=== PATIENT | male | born 1970 | race Caucasian/White ===

== ENCOUNTER 2017-03-16 20:02 | Emergency (ER) | payer SELFPAY ==
--- NOTE | ~2017-03-16 | ER ---
PATIENT'S NAME: RICKIE PUENTE [facility] AGE: 47 Y [address] ROOM: [place] [address] LOCATION: [facility] ADMIT DATE: 03/16/2017 ER/Outpatient Report DISCHARGE DATE: 03/16/2017 FAMILY PHYSICIAN: PHYSICIAN, NO ATTENDING PHYSICIAN: Sameera Sloan The patient brought back to the ER 2015 hours, seen at 2015 hours, did attempt to get a UA upon arrival to the ER, but was unable to. CHIEF COMPLAINT: The patient was checked into the ER with suicidal thoughts. HISTORY OF PRESENT ILLNESS: The patient states he is here because of his family that they think he is suicidal, he states he is not. He has no desire to harm himself. He states he loves himself and would never harm himself. He has not eaten or slept according to the family for the last 4 days. He states he did eat this afternoon. His father reports that he has had problems with schizophrenia in the past. 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 He has not been hospitalized since for psychiatric problems. He was on lorazepam routinely up until July of 2016, he states he stopped taking that at that time because he no longer wanted to get along with his , he was only taking it, so he could get along with his . He states he is not currently on any medicine, is not supposed to be on any medicine. He refused to give a urine sample. States he does not want to be here. ALLERGIES: HE HAS NO KNOWN ALLERGIES. CURRENT MEDICATIONS: None. PAST MEDICAL HISTORY: Includes psychiatric psychosis hospitalization in 1995. PAST SURGERIES: Umbilical hernia repair in July of 2016 and surgery to the right arm as a child. SOCIAL HISTORY: He lives on his own. Does smoke herbal cigarettes as well as tobacco cigarettes. Denies use of drugs. Does drink alcohol on a regular basis. He states he has talked to the police several times over the last 4 days because he has been out picking up trash in a bathrobe and the police said that there PATIENT'S NAME: RICKIE PUENTE [facility] AGE: 47 Y [address] ROOM: [place] [address] LOCATION: [facility] ADMIT DATE: 03/16/2017 ER/Outpatient Report DISCHARGE DATE: 03/16/2017 FAMILY PHYSICIAN: PHYSICIAN, NO ATTENDING PHYSICIAN: Sameera Sloan Elvie was nothing wrong with that and let him go. His father is concerned that he is not able to care for himself. The patient refuses to have any treatments done, refuses to allow us to check any lab work, check any urine, so without being willing to be seen, he asked to sign out AMA, form was completed. He did sign out AMA and was escorted to the waiting room. The family is with him. They have chosen to call the Police Department to come and evaluate him and decide further care based on that. PERCY STEWART APRN FOR SAMEERA Bermeo DO JOAQUIN SLOAN/modl /[id number] d: 03/16/17 2329 t: 03/25/17 0512, OUTPATIENT REPORT
[2017-03-18] MEDS ORDERED: ATIVAN 1 MG1 MG PO (10:36)
[2017-06-05] MEDS ORDERED: INVEGA6 MG PO (10:43)
== END 2017-03-16 20:48 | disposition left against medical advice (07) ==
LOC: GMED 20:02
DX: Z53.21 Procedure and treatment not carried out due to patient leaving prior to being seen by health care provider (principal)

== ENCOUNTER 2017-03-16 21:19 | Emergency (ER) | payer SELFPAY ==
--- NOTE | ~2017-03-16 | ER ---
PATIENT'S NAME: RICKIE PUENTE [facility] AGE: 47 Y [address] ROOM: [place] [address] LOCATION: [facility] ADMIT DATE: 03/16/2017 ER/Outpatient Report DISCHARGE DATE: FAMILY PHYSICIAN: Physician, Unknown ATTENDING PHYSICIAN: Stevie Sloan Time of Arrival: 2122. Time of Evaluation: 2122. CHIEF COMPLAINT: The patient was here. Did not want to be seen. Left AMA. Family talked with him. They did call and talk with the police. Police came and talked with him. He agreed to be seen. Got him back to the room. Stated that he did not want to be seen. Went back to the conference room, talked with the family and police, and then agreed that he did need some assistance and would get assistance mentally on a voluntary basis. Patient continues to deny desire to harm self or others. ALLERGIES: HE HAS NO KNOWN ALLERGIES. MEDICATIONS: No regular medications. PAST MEDICAL HISTORY: Includes alcohol and drug abuse. 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 PAST SURGERIES: Include umbilical hernia repair, right forearm fracture. SOCIAL HISTORY: Does smoke tobacco as well as herbal cigarettes. Does smoke marijuana and drinks alcohol on a regular basis. REVIEW OF SYSTEMS: All negative other than those mentioned in the HPI. PHYSICAL EXAMINATION: VITAL SIGNS: Blood pressure is 126/90, pulse of 81, respirations 16, O2 saturation is 97% on room air. GENERAL: He is awake, alert, and oriented x4. SKIN: [place], warm, and dry. RESPIRATIONS: Even and nonlabored. Lung sounds are clear throughout. HEART: Regular rate and rhythm. ABDOMEN: Soft and nondistended. Bowel sounds are present. PATIENT'S NAME: RICKIE PUENTE [facility] AGE: 47 Y [address] ROOM: [place] [address] LOCATION: [facility] ADMIT DATE: 03/16/2017 ER/Outpatient Report DISCHARGE DATE: FAMILY PHYSICIAN: Physician, Unknown ATTENDING PHYSICIAN: Stevie Sloan He did urinate in a cup. LABORATORY AND DIAGNOSTIC STUDIES: EKG was completed. It shows sinus rhythm. CBC was done. White count 13.8. Chem panel is within normal limits. Alcohol was negative. Tylenol is negative. Salicylate level is 4.5. Urine drug screen is positive for marijuana. EMERGENCY ROOM COURSE: [facility] was contacted. They report since the patient is not suicidal at this time he does not qualify for inpatient care. They recommend that patient be considered for crisis unit in [place]. They will be contacted. [place] police department has evaluated patient and do not feel he is a potential harm to self or others and will not place him in emergency protective custody. Patient reviewed with Dr. Sloan. Please see his dictation for placement of patient. PERCY STEWART APRN FOR DO JOAQUIN LEWIS/justin /[id number] d: 03/17/17 0130 t: 03/25/17 0512, OUTPATIENT REPORT
--- NOTE | ~2017-03-16 | ER ---
PATIENT'S NAME: RICKIE PUENTE [facility] AGE: 47 Y [address] ROOM: [place] [address] LOCATION: [facility] ADMIT DATE: 03/16/2017 ER/Outpatient Report DISCHARGE DATE: FAMILY PHYSICIAN: Physician, Unknown ATTENDING PHYSICIAN: Stevie Sloan ADDENDUM: This is an addendum to Marisela Brunner's dictation. Please see her dictation for chief complaint, history of present illness, past medical history, past surgical history, social history, allergies, medications, primary care doctor, review of systems, and physical exam. EMERGENCY DEPARTMENT COURSE: The patient was awaiting information from [facility] and [facility]. He is not suicidal at this time. He is not homicidal at this time. He is requesting something for his agitation. We did give the patient 20 mg of Geodon. The patient is being discharged to home with his family. [facility] has seen and evaluated the patient here as well and do not feel he is requiring emergency protective custody at this time. Family will transfer the patient to [facility] for further evaluation tomorrow. We had contacted [facility]. They report that he does not meet inpatient criteria. We did contact [facility]. They do report they are happy to evaluate him but they cannot guarantee admission. Family and the patient have decided that they will just go to [facility] in the morning for evaluation. Family reports they feel he is safe. IMPRESSION: 1. Manic episode. 2. Initial visit. DISPOSITION: The patient discharged to home in good condition. DO SUZETTE LEWIS/modl /[id number] d: 03/17/178 t: 03/25/17 0114, OUTPATIENT REPORT
[2017-03-16 22:02] LABS: BASOPHIL % 0.3 %; EOSINOPHIL % 0.1 %; HEMATOCRIT 43.7 % (37.0-53.0); HEMOGLOBIN 15.3 g/dL (12.0-17.0); IMMATURE GRANULOCYTE % 0.3 %; LYMPHOCYTE # 1.4 K/uL (0.8-4.0); LYMPHOCYTE % 10.4 %; MCV 91.4 fl (83.0-98.0); MONOCYTE # 1.3 K/uL (0.0-1.0); MONOCYTE % 9.6 %; MPV 9.4 fl (9.4-12.4); NEUTROPHIL # (ANC) 10.9 K/uL (1.4-9.0); NEUTROPHIL % 79.3 %; NRBC % 0 /100WBC (0-0.00); PLATELET COUNT 265 K/uL (150-450); RBC 4.78 M/uL (4.00-6.00); RDW-CV 12.1 % (11.9-14.6); WBC 13.8 K/uL (4.0-11.0)
[2017-03-16 22:16] LABS: AMPHETAMINE NEGATIVE (NEGATIVE); BARBITURATE NEGATIVE (NEGATIVE); COCAINE NEGATIVE (NEGATIVE); OPIATES NEGATIVE (NEGATIVE)
[2017-03-16 22:18] LABS: ALBUMIN 4.1 gm/dL (3.5-5.0); ALK PHOS 57 IU/L (33-138); ALT 24 IU/L (12-78); ANION GAP 13.8 (10.0-19.0); AST 30 IU/L (10-40); BLOOD UREA NITROGEN 16 mg/dL (6-24); CALCIUM 8.8 mg/dL (8.5-10.5); CHLORIDE 106 mMol/L (96-110); CO2 22 mMol/L (22-32); CREATININE 1.1 mg/dL (0.6-1.3); ESTIMATED GFR (MDRD EQUATION) > 60; POTASSIUM 3.8 mMol/L (3.7-5.1); SODIUM 138 mMol/L (135-145); TOTAL BILIRUBIN 1.7 mg/dL (0.0-1.5); TOTAL PROTEIN 7.1 g/dL (6.0-8.4)
[2017-03-18] MEDS ORDERED: ATIVAN 1 MG1 MG PO (10:36)
[2017-06-05] MEDS ORDERED: INVEGA6 MG PO (10:43)
== END 2017-03-16 23:16 | disposition disaster alternative care site (69) ==
LOC: GMED 21:19
PROVIDERS: Emergency Medicine
DX: F30.9 Manic episode, unspecified (principal); F17.210 Nicotine dependence, cigarettes, uncomplicated
CPT/HCPCS: G0480